=== PATIENT | male | born 1985 | race African-American/Black ===

== ENCOUNTER → 2018-07-12 | Outpatient (CLI) | payer OTHER ==
--- NOTE | 2018-07-12 18:11 | RADIOLOGY IMAGING REPORT ---
FACILITY: [facility] - [place] PATIENT NAME: Aguilar Cisse : 1985 MR: [id number] V: [id number] EXAM DATE: ORDERING PHYSICIAN: JUAN DUVAL TECHNOLOGIST: Location: [facility] - [place] Patient: Aguilar Cisse : 1985 Visit/Account:[id number] Date of Sevice: 07/12/2018 EXAMINATION: Scrotal ultrasound with duplex Doppler evaluation HISTORY: Testicular pain. COMPARISON: None. FINDINGS: Testes: Normal in size and echogenicity without mass or microlithiasis. The right testis measures 3. 5 x 1.6 x 2.8 cm and the left testis measures 4.3 x 2.0 x 3.2 cm. Symmetric blood flow documented by color Doppler ultrasound. Low resistance arterial blood flow within each testicle by duplex Doppler ultrasound. Venous blood fl ow is also documented. Epididymides: Mildly increased vascularity of the right epididymis. The left epididymis is hypervascu lar. Hydrocele: Small right hydrocele. IMPRESSION: Increased vascularity in the epididymides, more on the left, suggestive of epididymitis. Small right hydrocele. Report Dictated By: Minor Cisse MD at 07/12/2018 6:00 PM Report E-Signed By: Minor Cisse MD at 07/12/2018 6:07 PM WSN:[id number]
== END ==
LOC: US 16:48
PROVIDERS: ATTEND Physician Assistant
DX: N50.1 Vascular disorders of male genital organs (principal)
CPT/HCPCS: 76870